=== PATIENT | male | born 1995 | race Caucasian/White ===

== ENCOUNTER 2018-10-27 12:09 | Emergency (ER) | payer OTHER ==
[2018-10-27 12:19] VITALS: BP 135/99
--- NOTE | 2018-10-27 12:52 | EDPHY ---
HPI/HX/ROS/PE/MDM Narrative: CLINICAL IMPRESSION: Head injury ASSESSMENT/PLAN: Patient is a 23 year old male with no significant medical history who presents requesting a work release note after sustaining a head injury 2 days prior. Patient is well appearing and in no acute distress, denies any complaints while in the ED today. He is afebrile and nontoxic-appearing, he is in no acute distress on arrival. His neurological exam is grossly normal with no focal deficit. Examination reveals abrasion right forehead, no other acute findings. He has no new focal neurologic deficit, there has been no altered mentation, there are no clinical findings to suggest skull fracture, there is no known bleeding disorder, there has been no vomiting and no posttraumatic seizure. Given the patients history and physical, we feel a head CT is not indicated at this time. The patient had no further concerns. History and physical consistent with mild head injury. The patient does not have a PCP, I have provided referrals for him to establish care with and he understands the importance of close follow-up. Strict return precautions were discussed- he will return to the emergency department for altered mentation, lethargy, vomiting, seizure, abnormal movements or for any other concerning symptom. Patient verbalizes understanding and is in agreement with this plan. Case and plan of care discussed with Dr. Caceres. DIFFERENTIAL DX: Head injury including but not limited to concussion, skull fracture, intraparenchymal contusion, subarachnoid, subdural and epidural hematoma. ED COURSE: 12:56 p.m: Case discussed with Dr. Caceres CHIEF COMPLAINT: "I need a work note", head injury 2 days prior. HPI: Patient is a 23 year old male who presents to the emergency department after sustaining a head injury 2 days ago. He denies any complaints today, states "I need a return to work note". Patient reports that he was out hiking when he slipped on the ice causing him to fall to the ground 2 days ago. He fell on to his right side, he did hit his head on the ground. He denies any LOC. Patient denies any new focal neurologic deficit, he has had no altered mentation, he is not on anticoagulation or antiplatelet therapy, he has no bleeding disorder, there has been no vomiting, no amnesia and no posttraumatic seizure. He denies any neck or back pain. He denies any other injury of complaint. He reports he had a mild ANDERSON after the fall but otherwise felt generally well. Yesterday while he was at work he had a ANDERSON and felt "overwhelmed" and subsequently went home sick. He woke up this morning feeling fine and at his baseline however work would not let him return with clearance. No other concerns. PMH: Depression Pertinent Past Surgical History: Denies Family History: Non contributory Social History: Occasional cigarette, occasional marijuana and occasional ETOH REVIEW OF SYSTEMS: All other systems negative Constitutional: No fever, no chills, appetite change. Eyes: No discharge, vision change. ENT: No sore throat, congestion, ear pain. Cardiovascular: No chest pain, no palpitations. Respiratory: No cough, no shortness of breath. Gastrointestinal: No abdominal pain, no vomiting, diarrhea. Genitourinary: No hematuria, dysuria, flank pain. Musculoskeletal: No back pain, joint swelling, joint pain, myalgias. Skin: Facial abrasion. No rashes, color change. Neurological: No headache, dizziness, weakness. PHYSICAL EXAM: General Appearance: Alert, oriented, appropriate, cooperative, NAD, well hydrated, non-toxic appearing, VSS, no hypoxia. HENT: Normocephalic, abrasion noted right forehead. Bilateral external ears are normal. Bilateral tympanic membranes are normal with pearly hairston reflex. N hemotympanum bilaterally. No briggs sign or raccoon eyes. Nares are clear, mucosa is pink. Oropharynx is clear, uvula is midline. There is no tonsillar enlargement or exudate. The dentition is normal. Eyes: PERRLA, no acute vision change, nystagmus, swelling, discharge, pain or photosensitivity. EOMI intact with no entrapment. Conjunctiva pink, no pallor. or injection] Neck: Supple, nontender, no lymphadenopathy, no midline pain, FROM. Respiratory: There are no retractions, lungs are clear to auscultation. Cardiac: Regular rate and rhythm, no murmurs or gallops. Gastrointestinal: Abdomen is soft, nontender, bowel sounds normal, no masses/ hernia, no rigidity, guarding or focal peritoneal findings. Neurological: MENTAL STATUS: Patient is alert and oriented to person, place, time, and situation. Recent and remote memory are intact. Attention and concentration are normal. Found knowledge is appropriate to level of education. Mood and affect normal. SPEECH: Language including naming, repetition, comprehension, and spontaneous speech are normal. No dysarthria or dysphagia. CRANIAL NERVES: II: Visual peterson are full to confrontation. Vision is grossly intact. III, IV, : Pupils are equal, round, reactive to light. Extraocular eye movements are full and without nystagmus. V: Facial sensation is intact to touch symmetrically in all 3 divisions. VII: Face is symmetric at rest with no asymmetry of grimace or evidence of facial weakness. VIII: Hearing is intact bilaterally to finger rub. IX, X: Palate is midline and elevates symmetrically with intact cough/gag. XI: Sternocleidomastoid and trapezius strength is normal. XII: Tongue protrudes midline without atrophy or fasciculations. MOTOR: Normal bulk and tone symmetrically in the upper and lower extremities. Upper extremities: shoulder abduction, elbow flexion, elbow extension, flexion of fingers and finger abduction strength 5/5 bilaterally. Lower extremities: hip flexion, knee flexion and extension, plantar and dorsiflexion of foot, and great toe extension strength 5/5 bilaterally. No pronator drift. SENSORY: Sensation is intact to light touch and symmetric in the UE's in LE's bilaterally. Romberg is negative. COORDINATION: Fine motor and rapid alternating movements are normal. Finger to nose is normal bilaterally. Ndsm-py-ncns is normal bilaterally. No abnormal movements noted. There is no tremor at rest or with posture or action. GAIT/STATION: Casual, straightforward gait is normal. Patient can walk on toes and on heels. No gait instability. Skin: Warm, dry, no rashes, no nodules on palpation. Musculoskeletal: Extremities are symmetrical, full range of motion, no tenderness, deformity, swelling, or erythema. Psychiatric: Patient is oriented X 3, there is no agitation. MEDICAL DECISION MAKING: Patient was seen independently. Secondary supervising physician at time of evaluation was Amandeep Caceres. Diagnosis: Head Injury. Summary: See Assessment and Plan for summary of ED visit. Clinical lab tests: [none. Independent visualization of images, tracing, or specimens: no. Decision to obtain medical records or history from someone other than the patient: no. Review / Summarize previous medical records: N/A. Discussed patient with another provider: . Patient Progress: stable, dc to home. (Kamla Maria) MDM: I did not see this patient while he was in the emergency department. However his care was discussed with the PA while the patient was in the department. I agree with treatment plan and management (Bandar Caceres) General Initial Vital Signs: Initial Vital Signs Temperature (C) 36.5 C 10/27/18 12:16 Heart Rate 102 H 10/27/18 12:16 Respiratory Rate 18 10/27/18 12:16 Blood Pressure 135/99 H 10/27/18 12:16 O2 Sat (%) 97 10/27/18 12:16 O2 Delivery Mode Room Air Allergies/Adverse Reactions: No Known Allergies Allergy (Unverified 10/27/18 12:15) Home Medications: Medication Instructions Recorded Anafranil 10/27/18 Departure - Departure Disposition: Home, Routine, Self-Care Clinical Impression: Head injury Condition: Good Instructions: Head Injury (ED) Additional Instructions: DISCHARGE INSTRUCTIONS FROM YOUR DOCTOR Thank you for visiting our emergency department today. Please keep in mind that discharge from the emergency department does not mean that there is nothing wrong - it simply means that we have not identified an emergency condition that requires further evaluation or treatment in the hospital. You should always plan to follow up with primary care for re-evaluation of your condition in the next 2-3 days. If you have been referred to a specialist, please call as soon as possible (today or tomorrow) to schedule your follow up appointment at the appropriate time. A primary care provider has been referred to you, please establish care for ongoing medical needs. Brain rest: No phone, texting, t.v., music. Stop smoking as soon as possible. Avoid activities where the you could fall or reinjure your head. No contact sports until the pain, swelling and all symptoms have completely resolved and a primary care physician has cleared you. As discussed, head injuries can be cummulative. Your head needs a rest. Elevate the head of the bed to decrease pain and/or swelling. [Clean the wounds with soap and water. Apply antibiotic ointment. Watch for any signs of skin infection like redness, warmth, swelling, bleeding, drainage, fever or chills.] Ibuprofen every 6 hours as directed as needed for pain, headache. Take with food. Stop if this upsets your stomach. Do not exceed 2400 mg in 24 hours. Tylenol every 4 hours as directed as needed for pain, headache. Do not exceed 4000 mg in 24 hours. You should spend the next 24 hours with a agent contract clerk who knows you well and can help monitor your symptoms. Return immediately for severe headache, unusual fatigue, difficulty being aroused, vomiting, dizziness, fainting, mental status changes, personality changes, tremor/seizure, visual disturbance, unusual movements, numbness, tingling, weakness or other concerns. Schedule a follow-up appointment with a primary care physician in 1-2 days re- evaluation. Use the list of resources if you need primary care contact information. Return for any of the above mentioned symptoms, for fever, chills, development of bruising or swelling, new site of pain, blurry vision, double vision, eye sensitivity to light, eye pain, visual disturbance, neck pain or stiffness, back pain, arm or leg pain, arm or leg numbness, tingling, weakness, for other signs of injury, change in or loss of bowel or bladder control, or for any other new, worsening or worrisome symptoms. People present with illnesses and injuries in different ways, and it is always possible that we have missed something. You may always return for re-evaluation if symptoms worsen or if they are not improving or if you develop new/different symptoms. Again, thank you for choosing our emergency department. We hope that you feel better. Referrals: NONE *PRIMARY CARE P,. [Primary Care Provider] - As per Instructions Lizzeth Chen MD [Medical Doctor] - As per Instructions Stand Alone Forms: Work Excuse
== END 2018-10-27 13:06 | disposition home or self-care (01) ==
DX: S00.91XA Abrasion of unspecified part of head, initial encounter (principal); W00.0XXA Fall on same level due to ice and snow, initial encounter; Y92.89 Other specified places as the place of occurrence of the external cause; Y93.01 Activity, walking, marching and hiking; Y99.9 Unspecified external cause status